=== PATIENT | female | born 1950 | race Caucasian/White ===

== ENCOUNTER 2018-11-04 17:01 | Emergency (ER) | payer MEDICARE, OTHER ==
--- NOTE | 2018-11-04 17:14 | ED Physician Documentation ---
Upper Extremity Injury - HISTORIAN Historian: patient - HPI Chief Complaint: Upper Extremity Injury Additional Information: 68yo white female who tripped over something in the house and injured right wrist area. Landed with her wrist flexed. Had some immediate pain. Has some mild pain in the right elbow and shoulder area. Denies any LOC. Onset: today (13:30) Where: home Severity: moderate Duration: persistent since Context: fall Associated Symptoms: denies: numbness distally, feeling loss, loss of power to arms Modifying Factors: pain on movement Further Comments: no - ROS CONST: no problems - PAST HX Past History: Rt handed, diabetes Type 2, other (Hypertension, hyperlipidemia) Immunizations: influenza, pneumovax Allergies/Adverse Reactions: Allergies Allergy/AdvReac Type Severity Reaction Status Date / Time acetaminophen [From Vicodin] Allergy Vomiting Verified 11/04/18 18:33 hydrocodone [From Vicodin] Allergy Vomiting Verified 11/04/18 18:33 Iodinated Contrast- Oral and AdvReac Rash Verified 11/04/18 18:35 IV Dye nitrofurantoin AdvReac Vomiting Verified 11/04/18 18:35 [From Macrobid] Sulfa (Sulfonamide AdvReac Vomiting Verified 11/04/18 18:34 Antibiotics) Home Medications: Ambulatory Orders Medication Instructions Recorded Aspirin EC [Ecotrin] 1 tab PO DAILY 11/04/18 Hydrochlorothiazide [Hydrodiuril] 1 tab PO DAILY 11/04/18 Levothyroxine Sodium [Synthroid] 1 tab PO DAILY 11/04/18 Lisinopril [Prinivil] 1 tab PO DAILY 11/04/18 Metformin HCl [Glucophage] 1 tab PO BID 11/04/18 Metoprolol Succinate [Toprol Xl] 1 tab PO DAILY 11/04/18 Pravastatin Sodium [Pravachol] 1 tab PO DAILY 11/04/18 Tramadol HCl [Ultram] 50 mg PO Q6 PRN #20 tablet 11/04/18 - SOCIAL HX Smoking History: quit greater than 1 year Alcohol Use: none Drug Use: none - FAMILY HX Family History: no significant history - VITAL SIGNS Vital Signs: Vital Signs Temp Pulse Resp BP Pulse Ox 97.9 F 68 20 119/50 96 11/04/18 17:05 11/04/18 19:54 11/04/18 19:54 11/04/18 19:54 11/04/18 19:54 - REVIEWED ASSESSMENTS Nursing Assessment Reviewed: Yes Vitals Reviewed: Yes ED Results Lab/Radiology - Radiology Radiology Impressions: Right forearm, two views History: Forearm pain after fall. Findings: The osseous structures are intact without fracture. The wrist and elbow joints are normal. No soft tissue abnormality. Impression: 1. No acute osseous abnormality. - Orders Orders: ED Orders Category Date Time Status Wrist Splint 1T Care 11/04/18 18:34 Active FOREARM 2 VIEWS [RAD] Stat Exams 11/04/18 Taken Upper Extremity Injury Physic - Physical Exam General Appearance: alert, moderate distress Hand: normal inspection, non-tender, no evidence of injury. No: deformity Wrist: bone tenderness (radial side), limited ROM (pain with flex, extension, suppination and pronation). No: normal ROM (decrease ROM due to pain), deformity, ecchymosis Elbow/Forearm: limited ROM (in flexion) Neuro/Vascular/Tendon: no vascular compromise, motor nml, sensation nml. No: abnml cap refill Skin: warm,dry Head/ENT: nml inspection. No: swelling, ecchymosis Neck/Back: nml inspection, non-tender Resp/CVS: chest non-tender, breath sounds nml, heart sounds nml, no resp. distress, lungs clear, reg. rate & rhythm Discharge Clincal Impression: Wrist sprain Qualifiers: Encounter type: initial encounter Laterality: right Qualified Code(s): S63.501A - Unspecified sprain of right wrist, initial encounter Prescriptions: Tramadol HCl [Ultram] 50 mg PO Q6 PRN #20 tablet PRN Reason: Pain Referrals: Primary Doctor,No [Primary Care Provider] - 2 Days Additional Instructions: Wear wrist splint for the next several days. Keep wrist elevated with a cool compress. Take some Aleve 220mg, 2 tabs twice a day with food. Take Tramadol as needed for break through pain. If not improving in several days to see your primary care provider or return to the ED. Condition: Stable Disposition: 01 HOME, SELF-CARE Decision to Admit: NO Date of Decison to Admit: 11/04/18 Decision Time: 18:27
[2018-11-04 19:56] VITALS: BP 119/50
--- NOTE | 2018-11-05 06:19 | Diagnostic Imaging Report ---
FABIO VILCHIS [facility] [address] [facility].[address] [id number] Report Submission Date: Nov 04, 2018 6:14:47 PM CLINICAL SUPPORT TECH Patient Study Name: ABDIEL GIBSON Date: Nov 04, 2018 5:56:36 PM CLINICAL SUPPORT TECH Modality Type: DX Gender: F Description: FOREARM 2 VIEWS : 48 Institution: [facility] Physician: FABIO VILCHIS Right forearm, two views History: Forearm pain after fall. Findings: The osseous structures are intact without fracture. The wrist and elbow joints are normal. No soft tissue abnormality. Impression: 1. No acute osseous abnormality. Electronically signed on Nov 04, 2018 6:14:47 PM CLINICAL SUPPORT TECH by: German ACOSTA
== END 2018-11-04 19:45 | disposition home or self-care (01) ==
LOC: ED 17:01
DX: S63.501A Unspecified sprain of right wrist, initial encounter (principal); W01.0XXA Fall on same level from slipping, tripping and stumbling without subsequent striking against object, initial encounter; Y93.01 Activity, walking, marching and hiking; Y92.009 Unspecified place in unspecified non-institutional (private) residence as the place of occurrence of the external cause
CPT/HCPCS: 29125; 73090; 99282; 99283